=== PATIENT | female | born 1955 | race Caucasian/White ===

== ENCOUNTER → 2017-02-13 | Outpatient (CLI) | payer OTHER ==
[~2017-02-13] MED LIST: GADOBUTROL 10 ML VIAL IVP ONE
== END ==
LOC: FIMAGING 19:37
PROVIDERS: ATTEND Physician Assistant Surgical
DX: D32.9 Benign neoplasm of meninges, unspecified (principal)
CPT/HCPCS: A9585

== ENCOUNTER → 2017-02-16 | Outpatient (CLI) | payer OTHER | LOC: FIMAGING 09:54 | PROVIDERS: ATTEND Physician Assistant | DX: S83.272A Complex tear of lateral meniscus, current injury, left knee, initial encounter (principal); S83.242A Other tear of medial meniscus, current injury, left knee, initial encounter; M22.42 Chondromalacia patellae, left knee; M25.462 Effusion, left knee; M71.22 Synovial cyst of popliteal space [Baker], left knee ==

== ENCOUNTER → 2017-03-24 | Outpatient (CLI) | payer OTHER | LOC: FIMAGING 11:43 | PROVIDERS: ATTEND Physician Assistant Surgical | DX: M50.80 Other cervical disc disorders, unspecified cervical region (principal); Z98.1 Arthrodesis status ==

== ENCOUNTER → 2017-04-24 | Outpatient (CLI) | payer OTHER | LOC: FIMAGING 08:38 | PROVIDERS: ATTEND Physician Assistant Surgical | DX: M47.892 Other spondylosis, cervical region (principal); M50.81 Other cervical disc disorders, high cervical region; M50.821 Other cervical disc disorders at C4-C5 level; M50.823 Other cervical disc disorders at C6-C7 level; M50.83 Other cervical disc disorders, cervicothoracic region ==

== ENCOUNTER → 2017-05-04 | Outpatient (CLI) | payer OTHER | LOC: FIMAGING 10:02 | PROVIDERS: ATTEND Physician Assistant Surgical | DX: M50.31 Other cervical disc degeneration, high cervical region (principal); M50.321 Other cervical disc degeneration at C4-C5 level; M50.323 Other cervical disc degeneration at C6-C7 level; M12.88 Other specific arthropathies, not elsewhere classified, other specified site; Z98.1 Arthrodesis status ==

== ENCOUNTER 2017-12-21 14:31 | Emergency (ER) | payer OTHER ==
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
[2017-12-21] MEDS ORDERED: NS 1,000 ML IV ONE (15:38)
[2017-12-21 16:02] LABS: PLATELET COUNT 182 10^3/uL (150-400)
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
[2017-12-21] MEDS ORDERED: oxyCODONE IR 5 MG TAB PO ONE (18:30)
[2017-12-21 18:53] VITALS: BP 123/81; PULSE 69; RESP 19; TEMP 98.2; O2SAT 96
== END 2017-12-21 18:53 | disposition home or self-care (01) ==
PROC: 3E0337Z Introduction of Electrolytic and Water Balance Substance into Peripheral Vein, Percutaneous Approach (ICD-10-PCS; principal; 2017-12-21)
DX: M25.551 Pain in right hip (principal); E86.9 Volume depletion, unspecified

== ENCOUNTER → 2018-04-05 | Outpatient (CLI) | payer OTHER | LOC: FIMAGING 08:18 | PROVIDERS: ATTEND Physician Assistant | DX: R13.10 Dysphagia, unspecified (principal) ==

== ENCOUNTER → 2018-05-07 | Outpatient (CLI) | payer OTHER | PROVIDERS: ATTEND Physician Assistant | DX: R13.12 Dysphagia, oropharyngeal phase (principal); Z98.1 Arthrodesis status | CPT/HCPCS: 92611-GN ==

== ENCOUNTER → 2018-06-19 | Outpatient (CLI) | payer OTHER | LOC: FIMAGING 15:20 | PROVIDERS: ATTEND Physician Assistant Surgical | DX: D32.9 Benign neoplasm of meninges, unspecified (principal) | CPT/HCPCS: A9585 ==

== ENCOUNTER 2019-02-25 22:52 | Emergency (ER) | payer OTHER ==
--- NOTE | 2019-02-25 23:47 | EDPHY ---
H & P Stated Complaint: right arm pain lack of strength no traumatic Time Seen by Provider: 02/25/19 23:31 HPI/ROS: Chief Complaint: Right hand pain HPI: 64-year-old woman's presenting with right hand pain. Patient states she was been skiing for the last week. She has been using ski poles. Notice pain in her right hand which has been worsening over the course the day. Is described at the base of her thumb. Feels like she has a little bit of weakness closing her hand but has been able to use it. Does have a little bit of pain radiating up her right forearm. She does have a history of a spinal fusion a year ago in her cervical spine but has not had any other neurologic symptoms. She did fall on Monday but did not have any pain or neurologic symptoms after the fall. She continued to ski the remaining couple of days without any difficulty. No prior hand injuries in the past. No redness. No swelling. It hurts to oppose for little finger and her thumb. ROS: 10 systems were reviewed and were negative except those elements noted in the HPI. PMH: Cervical spine fusion Social History: No smoking, no alcohol, no recreational drug use Family History: non-contributory Physical Exam: Gen: Awake, Alert, No Distress HEENT: Nose: no rhinorrhea Eyes: PERRLA, EOMI Mouth: Moist mucosa Neck: Supple, no JVD Chest: nontender, lungs clear to auscultation Heart: S1, S2 normal, no murmur Abd: Soft, non-tender, no guarding Back: no CVA tenderness, no midline tenderness Ext: Patient has tenderness in the right thenar region with minimal tenderness in the anatomic snuffbox. She has decreased range of motion of her thumb secondary to pain primarily in the metacarpal and MCP joint. She has normal opposition with normal strength. She has full range of motion. Sensations intact in the radial, median, and ulnar nerve distribution. She has a negative Tinel's test. Capillary refills less than 2 sec. She has 2+ radial ulnar pulses. No swelling. No erythema or ecchymosis. Skin: no rash Neuro: CN II-XII intact, Sensation grossly intact, Strength 5/5 in bilateral upper and lower extremities - Personal History Current Tetanus Diphtheria and Acellular Pertussis (TDAP): Yes - Medical/Surgical History Hx Asthma: No Hx Chronic Respiratory Disease: No Hx Diabetes: No Hx Cardiac Disease: No Hx Renal Disease: No Hx Cirrhosis: No Hx Alcoholism: No Hx HIV/AIDS: No Hx Splenectomy or Spleen Trauma: No Other PMH: cervical lamenectomy, c5 surgery, yazmin knee surgery,shoulder and hand surgery - Social History Smoking Status: Never smoked Constitutional: Initial Vital Signs Temperature (C) 36.5 C 02/25/19 22:54 Heart Rate 58 L 02/25/19 22:54 Respiratory Rate 16 02/25/19 22:54 Blood Pressure 113/82 H 02/25/19 22:54 O2 Sat (%) 98 02/25/19 22:54 O2 Delivery Mode Room Air Allergies/Adverse Reactions: Penicillins Allergy (Verified 12/21/17 14:35) Sulfa (Sulfonamide Antibiotics) Allergy (Verified 12/21/17 14:35) Home Medications: Medication Instructions Recorded VYVANSE 12/21/17 Zoloft 12/21/17 Medical Decision Making - Diagnostics Imaging Results: X-ray shows degenerative changes but no acute fracture. Per my interpretation. Imaging: I viewed and interpreted images myself ED Course/Re-evaluation: [age] woman with right hand pain. No neurologic findings. Symptoms consistent with skin tears thumb. She has been placed in a thumb spica. Will discharge with follow-up with Hand surgery. Departure - Departure Disposition: Home, Routine, Self-Care Clinical Impression: Skier's thumb Condition: Good Instructions: Skier's Thumb (ED) Additional Instructions: Continue wearing the splint for comfort. Take ibuprofen, 600 mg every 8 hr. You may alternate with acetaminophen, 1000 mg every 8 hr. Follow up with hand surgeon in 2-3 days for further evaluation. Referrals: Isabella Rollins MD [Primary Care Provider] - As per Instructions Jonathan Sherman MD [Medical Doctor] - As per Instructions
[2019-02-26 00:31] VITALS: BP 118/62
== END 2019-02-26 00:30 | disposition home or self-care (01) ==
DX: S63.601A Unspecified sprain of right thumb, initial encounter (principal); V00.321A Fall from snow-skis, initial encounter; Y93.23 Activity, snow (alpine) (downhill) skiing, snowboarding, sledding, tobogganing and snow tubing; Y92.828 Other wilderness area as the place of occurrence of the external cause
CPT/HCPCS: L3807